=== PATIENT | female | born 1965 | race Caucasian/White ===

== ENCOUNTER 2021-11-18 14:07 | Outpatient (CLI) | payer BC | END 2021-11-18 14:08 | disposition home or self-care (01) | LOC: CSHULT 14:07 | PROVIDERS: ATTEND Physician Assistant | DX: I34.1 Nonrheumatic mitral (valve) prolapse (principal); Z12.31 Encounter for screening mammogram for malignant neoplasm of breast; N95.1 Menopausal and female climacteric states; I51.9 Heart disease, unspecified | CPT/HCPCS: 77063; 77067; 77080; 93306 ==

== ENCOUNTER 2023-10-10 12:12 | Outpatient (CLI) | payer BC | END 2023-10-10 12:13 | disposition home or self-care (01) | LOC: CSHMAMMO 12:12 | PROVIDERS: ATTEND Family Medicine | DX: Z12.31 Encounter for screening mammogram for malignant neoplasm of breast (principal) | CPT/HCPCS: 77063; 77067 ==